=== PATIENT | female | born 1990 | race Caucasian/White ===

== ENCOUNTER 2018-11-18 15:38 | Emergency (ER) | payer OTHER ==
[~2018-11-18] VITALS: Ht 162.6 cm; Wt 90.4 kg
[~2018-11-18 15:38] MED LIST: ACET500C5 PO; CEPH-443 PO
[2018-11-18 15:40] VITALS: BP 136/75; PULSE 108; RESP 16; Ht 162.6 cm; Wt 90.4 kg
[2018-11-18] MEDS ORDERED: ACETAMINOPHEN 325 MG TAB PO ONE (17:00)
[2018-11-18] MEDS ORDERED: CEPHALEXIN 500 MG CAP PO ONE (17:00)
== END 2018-11-18 17:19 | disposition home or self-care (01) ==
LOC: FTE 15:38
DX: R30.0 Dysuria (principal)
CPT/HCPCS: 81001; 84703; Z7502; Z7610; 99283